=== PATIENT | female | born 1965 | race African-American/Black ===

== ENCOUNTER 2019-07-09 09:52 | Emergency (ER) | payer BC ==
[~2019-07-09] VITALS: Ht 160 cm; Wt 65.0 kg
[2019-07-09] MEDS ORDERED: ALBUTEROL (0.083%) 2.5MG/3ML NEB HHN STA (11:04)
[2019-07-09 11:43] VITALS: BP 163/71
== END 2019-07-09 11:44 | disposition home or self-care (01) ==
LOC: ER 09:52
DX: J20.9 Acute bronchitis, unspecified (principal)
CPT/HCPCS: 71045; 94640; 99283; J7611; Z7610